=== PATIENT | female | born 1930 | race Caucasian/White ===

== ENCOUNTER 2020-04-02 13:43 | Inpatient (IN) ==
[2020-04-02] MEDS ORDERED: Dextrose Gel 15 GM/37.5 ML TUBE PO PRN ×2 (22:26)
[2020-04-02] MEDS ORDERED: D5% in Water 1,000 ML IVC PRN (22:26)
[2020-04-02] MEDS ORDERED: *HR* Dextrose 50 % in Water (Vial) 50 ML VIAL IVP PRN (22:26)
[2020-04-02] MEDS ORDERED: Acetaminophen 325 MG TABLET PO PRN (23:53)
[2020-04-03 05:28] LABS: Basophils % 0.5 %; Eosinophils # 0.2 K/mcL (0.0-0.6); Hematocrit 34.5 % (35.3-44.9); Hemoglobin 11.5 g/dL (11.5-15.4); Immature Granulocytes % 0.4 % (0-4); Lymphocytes # 1.5 K/mcL (0.6-4.6); Lymphocytes % 19.4 %; Mean Corpuscular HGB Conc 33.3 g/dL (31.6-35.5); Mean Corpuscular Hemoglobin 31.5 pg (28.0-33.3); Mean Corpuscular Volume 94.5 fL (83.0-100.0); Mean Platelet Volume 9.5 fL (9.4-12.4); Monocytes # 0.8 K/mcL (0.0-1.3); Platelet Count 249 K/mcL (140-400); Red Blood Count 3.65 M/mcL (3.82-4.97); Red Cell Distribution Width 13.5 % (11.5-14.5); Segmented Neutrophils % 66.7 %; White Blood Count 7.6 K/mcL (4.3-11.1)
[2020-04-03 05:37] LABS: BUN/Creatinine Ratio 19 (6-26); Blood Urea Nitrogen 14 mg/dL (8-23); Calcium 8.8 mg/dL (8.6-10.3); Carbon Dioxide 27 mEq/L (23-29); Chloride 103 mEq/L (98-107); Glucose 107 mg/dL (70-105); Osmolality,Calculated 283 (280-300); Potassium 4.3 mEq/L (3.5-5.1); Sodium 136 mEq/L (136-145); eGFR For African Americans > 60 (> 60); eGFR For Non-African Americans > 60 (> 60)
[2020-04-03] MEDS: *HR* Enoxaparin 40 MG/0.4 ML SYRINGE SQ SCH (05:46)
[2020-04-03] MEDS: Insulin LISPRO 300 UNITS/3 ML VIAL SQ SCH ×3 (07:50→16:24)
[2020-04-03] MEDS: OLANZapine 10 MG TAB.RAPDIS PO SCH (08:32)
[2020-04-03] MEDS: Ondansetron ODT 4 MG TAB.RAPDIS SL PRN ×2 (08:56→22:52)
[2020-04-03] MEDS: Brinzolamide 1% 10 ML BOTTLE RIGHT EYE SCH ×2 (08:59→16:56)
[2020-04-03] MEDS ORDERED: Lactulose Oral Soln 20 GM/30 ML UDC PO PRN (14:55)
[2020-04-03] MEDS: polyethylene glycoL 3350 17 GM POWD.PACK PO SCH (16:56)
[2020-04-03] MEDS: Sennosides/Docusate Sodium TABLET PO SCH (16:57)
[2020-04-03] MEDS ORDERED: Insulin LISPRO 300 UNITS/3 ML VIAL SQ SCH (21:00)
[2020-04-04] MEDS: Sennosides/Docusate Sodium TABLET PO SCH ×2 (02:47→09:01)
[2020-04-04] MEDS: Brinzolamide 1% 10 ML BOTTLE RIGHT EYE SCH ×3 (02:47→14:06)
[2020-04-04] MEDS: Latanoprost 2.5 ML BOTTLE BOTH EYES SCH (02:48)
[2020-04-04] MEDS: *HR* Enoxaparin 40 MG/0.4 ML SYRINGE SQ SCH (06:23)
[2020-04-04] MEDS: polyethylene glycoL 3350 17 GM POWD.PACK PO SCH (09:01)
[2020-04-04] MEDS: OLANZapine 10 MG TAB.RAPDIS PO SCH (09:01)
[2020-04-05] MEDS: Sennosides/Docusate Sodium TABLET PO SCH ×2 (01:32→09:19)
[2020-04-05] MEDS: Brinzolamide 1% 10 ML BOTTLE RIGHT EYE SCH ×2 (01:32→09:39)
[2020-04-05] MEDS: Latanoprost 2.5 ML BOTTLE BOTH EYES SCH (01:34)
[2020-04-05] MEDS: *HR* Enoxaparin 40 MG/0.4 ML SYRINGE SQ SCH (06:39)
[2020-04-05] MEDS ORDERED: Furosemide 20 MG TABLET PO SCH (09:00)
[2020-04-05] MEDS: OLANZapine 10 MG TAB.RAPDIS PO SCH (09:19)
[2020-04-05] MEDS: polyethylene glycoL 3350 17 GM POWD.PACK PO SCH (09:21)
[2020-04-05] MEDS ORDERED: Sennosides/Docusate Sodium TABLET PO SCH (21:00)
[2020-04-06] MEDS: Brinzolamide 1% 10 ML BOTTLE RIGHT EYE SCH (03:24)
[2020-04-06] MEDS: Latanoprost 2.5 ML BOTTLE BOTH EYES SCH (03:24)
[2020-04-06] MEDS: *HR* Enoxaparin 40 MG/0.4 ML SYRINGE SQ SCH (05:32)
[2020-04-06 08:57] VITALS: BP 97/54
== END 2020-04-06 10:40 | DRG 946 ==
LOC: INPGRE 19:45
PROVIDERS: ADMIT Family Medicine; ATTEND Family Medicine